=== PATIENT | female | born 1955 | race Caucasian/White ===

== ENCOUNTER → 2021-06-28 08:41 | Outpatient (CLI) | payer OTHER, SELFPAY ==
--- NOTE | 2021-06-28 08:52 | DI.MG.S_ITS ---
BILATERAL DIGITAL SCREENING MAMMOGRAM 3D/2D WITH CAD: 06/28/2021 Comparison is made to exams dated: 12/01/2018 mammogram, 11/26/2017 stereotactic biopsy, and 08/30/2017 mammogram - outside location. The tissue of both breasts is extremely dense, which lowers the sensitivity of mammography. Current study was also evaluated with a Computer Aided Detection (CAD) system. There are benign calcifications in both breasts. There also are benign vascular calcifications in the right breast. Additionally, there is a biopsy clip in the left breast. No significant masses, calcifications, or other findings are seen in either breast. There has been no significant interval change. IMPRESSION: BENIGN There is no mammographic evidence of malignancy. A 1 year screening mammogram is recommended. This exam was interpreted at Station ID: [id number]. NOTE: For mammograms, a report in lay terms will be sent to the patient. Approximately 15% of breast malignancies will not be visualized mammographically. In the management of a palpable breast mass, a negative mammogram must not discourage biopsy of a clinically suspicious lesion. Electronically Signed By: Tom mattson/rudolph:06/30/2021 08:26:27 letter sent: Normal Exam ACR BI-RADS Category 2: Benign Finding(s) 3342F
== END ==
PROVIDERS: PCP Internal Medicine; Referring Provider Internal Medicine; Visit Provider Internal Medicine
DX: Z12.31 Encounter for screening mammogram for malignant neoplasm of breast (principal)
CPT/HCPCS: 77063; 77067

== ENCOUNTER → 2021-10-09 12:30 | Outpatient (CLI) | payer OTHER, SELFPAY | PROVIDERS: PCP Internal Medicine; Referring Provider Internal Medicine; Visit Provider Internal Medicine | DX: Z78.0 Asymptomatic menopausal state (principal); Z13.820 Encounter for screening for osteoporosis; M85.89 Other specified disorders of bone density and structure, multiple sites | CPT/HCPCS: 77080 ==

== ENCOUNTER → 2021-12-09 09:16 | Outpatient (CLI) | payer OTHER, SELFPAY ==
[2021-12-09 10:48] LABS: COVID19 -Nasal RAPID Negative (Negative)
== END ==
PROVIDERS: PCP Internal Medicine; Visit Provider Surgery
DX: Z01.812 Encounter for preprocedural laboratory examination (principal); Z20.822 Contact with and (suspected) exposure to COVID-19
CPT/HCPCS: 87635; C9803

== ENCOUNTER 2021-12-10 08:22 | Day surgery (SDC) | payer OTHER, SELFPAY ==
[2021-12-10] VITALS (7 sets, daily range): BP systolic 98–145; BP diastolic 45–80; PULSE 14–67; RESP 12–19; TEMP 35.8–36.8; O2SAT 98–100; BMI 21.2
[2021-12-10] MEDS: SODIUM CHLORIDE 0.9% 1,000 ML 84 ML IV (08:51)
--- NOTE | 2021-12-10 09:29 | PM.HP.1 ---
History of Present Illness History of Present Illness Chief complaint: DX COLONOSCOPY Narrative: FIT+ Patient History Medical History (Updated 12/10/21 @ 08:41 by Ariane Blakely RN) Hypertension Surgical History (Updated 12/10/21 @ 08:40 by Ariane Blakely RN) History of carpal tunnel surgery of right wrist Family & Social History Social History: household members none Tobacco & Substance use: Smoking Status Never smoker alcohol intake current Substance Use Type does not use Meds Home Medications and Allergies Home Medications Medication Instructions Recorded Confirmed Type amlodipine 5 mg tablet 5 mg DAILY 12/10/21 12/10/21 History telmisartan 40 mg tablet 80 mg DAILY 12/10/21 12/10/21 History Allergies Allergy/AdvReac Type Severity Reaction Status Date / Time No Known Drug Allergies Allergy Verified 12/10/21 08:34 Exam Vital Signs (past 8 hours): - 12/10/21 08:41 Temperature 98.2 F Pulse Rate 67 Respiratory Rate 16 Blood Pressure 145/80 H Pulse Oximetry 100 Oxygen Delivery Method Room Air Oxygen Delivery Method Room Air Narrative Exam Narrative: Oropharynx free of lesions Chest clear to auscultation percussion Cardiac exam reveals no S3 or murmur Assessment & Plan Assessment & Plan narrative: Fit test positive, no other symptoms. First colonoscopy. Risks, benefits, alternatives have been explained. Time Spent With Patient Critical Care time: I spent a total of [] minutes of critical care time on this patient's care today; this time is exclusive of procedural time.
--- NOTE | 2021-12-10 09:30 | PM.OP.COLON ---
Operative Date/Time/Diagnoses Date of procedure: 12/10/21 Pre-op diagnosis: See indication and findings Procedure & Clinicians Study performed: Colonoscopy Indications: Fit test positive Surgeon: Kendall Cox Procedure Notes Procedure in detail: After informed consent was obtained the patient was placed in left lateral decubitus position. The video colonoscope was introduced the rectum slowly advanced cecum. Preparation was good. On slow withdrawal mucosa was carefully examined. The scope was removed. The patient tolerated procedure well. Blood loss none Complications none Sedation mac Findings 1. Medium-sized AVM at the rim of the cecum. This was ablated with APC on a setting of 0.8 L and 20 w. 2. Otherwise negative colonoscopy to cecum 3. Extensive skin tags on retroflexed view of the rectum. If Dian has I hint of anemia I would have her consider an upper endoscopy. Follow-up colonoscopy should be in 10 years
== END 2021-12-10 10:30 | disposition home or self-care (01) ==
PROVIDERS: PCP Internal Medicine; Referring Provider Internal Medicine Gastroenterology; Visit Provider Internal Medicine Gastroenterology
PROC: 0DJD8ZZ Inspection of Lower Intestinal Tract, Via Natural or Artificial Opening Endoscopic (ICD-10-PCS; CPT 45378; principal; 2021-12-10 09:30)
DX: R19.5 Other fecal abnormalities (principal); I10 Essential (primary) hypertension; K64.4 Residual hemorrhoidal skin tags; Q27.39 Arteriovenous malformation, other site
CPT/HCPCS: 45388; J2704

== ENCOUNTER → 2022-06-29 16:16 | Outpatient (CLI) | payer OTHER, SELFPAY ==
--- NOTE | 2022-06-29 16:17 | DI.MG.S_ITS ---
BILATERAL DIGITAL SCREENING MAMMOGRAM 3D/2D WITH CAD: 06/29/2022 CLINICAL: Routine screening. Family history of breast cancer. Comparison is made to exams dated: 06/28/2021 mammogram - [facility], 07/15/2017 mammogram, and 12/01/2018 mammogram - outside location. Both breasts are extremely dense, which lowers the sensitivity of mammography (category d />75% glandular tissue). Current study was also evaluated with a Computer Aided Detection (CAD) system. There are benign calcifications in both breasts. There also are benign vascular calcifications in the right breast. Additionally, there is a biopsy clip in the left breast. No significant masses, calcifications, or other findings are seen in either breast. There has been no significant interval change. IMPRESSION: BENIGN There is no mammographic evidence of malignancy. A 1 year screening mammogram is recommended. Based on Tyrer-Cuzick model (a risk assessment model), the patient's lifetime risk is 35.9% and her 10 year risk is 20.5%. If a patient has an elevated risk, a more comprehensive evaluation should be considered and/or a referral to a genetic counselor. The [place] [employer], [employer], and NCCN Guidelines advise the consideration of Breast MRI as an adjunct to screening mammography in patients whose Lifetime risk to develop breast cancer is 20% or higher. This exam was interpreted at Station ID: [id number]. NOTE: For mammograms, a report in lay terms will be sent to the patient. Approximately 15% of breast malignancies will not be visualized mammographically. In the management of a palpable breast mass, a negative mammogram must not discourage biopsy of a clinically suspicious lesion. Electronically Signed By: Kayoed Geiger M.D., jr/rudolph:06/30/2022 14:34:44 letter sent: Normal Exam ACR BI-RADS Category 2: Benign Finding(s) 3342F
== END ==
PROVIDERS: PCP Family Medicine; Referring Provider Family Medicine; Visit Provider Family Medicine
DX: Z12.31 Encounter for screening mammogram for malignant neoplasm of breast (principal); Z80.3 Family history of malignant neoplasm of breast
CPT/HCPCS: 77063; 77067

== ENCOUNTER → 2023-04-16 07:16 | Outpatient (CLI) | payer OTHER, SELFPAY ==
[2023-04-16 08:22] LABS: Add Manual Diff / Slide Review NO; Basophils Absolute Auto 100 /uL (0-100); Basophils Percent Auto 2.2 % (0-2); Eosinophils Absolute Auto 100 /uL (0-450); Eosinophils Percent Auto 1.6 % (2-4); Hematocrit 38.9 % (36-46); Hemoglobin 13.2 g/dL (12.0-16.0); Lymphocytes Absolute Auto 2000 /uL (1100-4500); Lymphocytes Percent Auto 43.1 % (25-40); Mean Corpuscular HGB Conc 33.9 % (30-36); Mean Corpuscular Hemoglobin 31.2 PG (26-34); Mean Corpuscular Volume 92.1 fL (80-100); Monocytes Absolute Auto 300 /uL (0-900); Neutrophils Absolute Auto 2100 /uL (1500-7000); Neutrophils Percent Auto 46.1 % (50-75); Platelet Count 338 X10^3/uL (150-400); Red Blood Cell Count 4.22 X10^6/uL (4.0-5.2); Red Cell Distribution Width 12.9 % (11.6-14.8); White Blood Cell Count 4.6 X10^3/uL (4.5-11.0)
[2023-04-16 08:37] LABS: BUN Creatinine Ratio 24.3 (6-22); Blood Urea Nitrogen 17 mg/dL (7-17); Calcium 10.5 mg/dL (8.4-10.2); Carbon Dioxide 27 mmol/L (22-32); Chloride 100 mmol/L (98-107); Estimated Glomerular Filt Rate > 60 mL/min (>60); Glucose 90 mg/dL (80-110); HEMOLYSIS < 15 (0-50); Potassium 4.6 mmol/L (3.4-5.1); Sodium 135 mmol/L (137-145)
[2023-04-16 08:41] LABS: High Sensitivity CRP - Cardiac < 0.3 mg/L (1.0-3.0)
[2023-04-16 08:48] LABS: Vitamin D 25 Hydroxy (D3) 47.2 ng/mL (30.0-100.0)
[2023-04-16 08:55] LABS: Creatinine Urine Random 34.9 mg/dL
[2023-04-16 09:01] LABS: Microalbumin Urine Random < 0.6 mg/dL (0-1.6)
== END ==
PROVIDERS: PCP Family Medicine; Referring Provider Family Medicine; Visit Provider Family Medicine
DX: I10 Essential (primary) hypertension (principal); E55.9 Vitamin D deficiency, unspecified; E78.5 Hyperlipidemia, unspecified; R73.9 Hyperglycemia, unspecified
CPT/HCPCS: 36415; 80048; 82043; 82306; 82570; 85025; 86140

== ENCOUNTER → 2023-07-01 | Outpatient (CLI) | payer OTHER, SELFPAY ==
--- NOTE | 2023-07-01 | DI.MG.S_ITS ---
BILATERAL DIGITAL SCREENING MAMMOGRAM 3D/2D WITH CAD: 07/01/2023 CLINICAL: Routine screening. Family history of breast cancer. Comparison is made to exams dated: 06/29/2022 mammogram, 06/28/2021 mammogram - [facility], and 12/01/2018 mammogram - outside location. Both breasts are extremely dense, which lowers the sensitivity of mammography (category d />75% glandular tissue). Current study was also evaluated with a Computer Aided Detection (CAD) system. There is a biopsy clip in the left breast. No significant masses, calcifications, or other findings are seen in either breast. There has been no significant interval change. IMPRESSION: BENIGN There is no mammographic evidence of malignancy. A 1 year screening mammogram is recommended. Based on Tyrer-Cuzick model (a risk assessment model), the patient's lifetime risk is 34.3% and her 10 year risk is 20.5%. If a patient has an elevated risk, a more comprehensive evaluation should be considered and/or a referral to a genetic counselor. The [place] [employer], [employer] [employer], and NCCN Guidelines advise the consideration of Breast MRI as an adjunct to screening mammography in patients whose Lifetime risk to develop breast cancer is 20% or higher. This exam was interpreted at Station ID: [id number]. NOTE: For mammograms, a report in lay terms will be sent to the patient. Approximately 15% of breast malignancies will not be visualized mammographically. In the management of a palpable breast mass, a negative mammogram must not discourage biopsy of a clinically suspicious lesion. Electronically Signed By: Cheryl Espinal M.D., PH.D eb/:07/02/2023 22:59:04 letter sent: Normal Exam ACR BI-RADS Category 2: Benign Finding(s) 3342F
== END ==
PROVIDERS: PCP Family Medicine; Referring Provider Family Medicine; Visit Provider Family Medicine
DX: Z12.31 Encounter for screening mammogram for malignant neoplasm of breast (principal); Z80.3 Family history of malignant neoplasm of breast; R92.343 Mammographic extreme density, bilateral breasts
CPT/HCPCS: 77063; 77067

== ENCOUNTER → 2024-03-02 07:24 | Outpatient (CLI) | payer OTHER, SELFPAY ==
[2024-03-02 08:41] LABS: Alanine Aminotransferase 77 IU/L (<35); Albumin 4.4 g/dL (3.5-5.0); Albumin Globulin Ratio 1.8 (1.0-2.8); Alkaline Phosphatase 75 U/L (38-126); Aspartate Aminotransferase 54 IU/L (14-36); BUN Creatinine Ratio 25.3 (6-22); Bilirubin Total 0.7 mg/dL (0.2-1.3); Blood Urea Nitrogen 20 mg/dL (7-17); Calcium 9.9 mg/dL (8.4-10.2); Carbon Dioxide 29 mmol/L (22-32); Chloride 102 mmol/L (98-107); Cholesterol 261 mg/dL (140-199); Estimated Glomerular Filt Rate > 60 mL/min (>60); Globulin 2.4 g/dL (1.7-4.1); Glucose 90 mg/dL (80-110); HEMOLYSIS < 15 (0-50); Potassium 4.7 mmol/L (3.4-5.1); Sodium 135 mmol/L (137-145); Total Protein 6.8 g/dL (6.3-8.2); Triglycerides 54 mg/dL (35-150)
[2024-03-02 08:46] LABS: High Sensitivity CRP - Cardiac < 0.3 mg/L (1.0-3.0)
[2024-03-02 08:53] LABS: HDL Cholesterol 138 mg/dL (40-60); LDL Cholesterol Calculated 112 mg/dL (<100)
== END ==
PROVIDERS: PCP Family Medicine; Referring Provider Family Medicine; Visit Provider Family Medicine
DX: I10 Essential (primary) hypertension (principal); E83.52 Hypercalcemia; M85.80 Other specified disorders of bone density and structure, unspecified site; Z78.0 Asymptomatic menopausal state; R25.2 Cramp and spasm
CPT/HCPCS: 36415; 80053; 80061; 82306; 86140

== ENCOUNTER → 2024-03-10 14:10 | Outpatient (CLI) | payer OTHER, SELFPAY ==
--- NOTE | 2024-03-10 14:10 | DI.RAD.S_ITS ---
PROCEDURE: XR DEXA AXIAL SKELETON INDICATIONS: bone density screen COMPARISON: , MARCIA, XR DEXA AXIAL SKELETON, 10/09/2021, 12:50. FINDINGS: Lumbar Spine: Bone mineral density 0.782 g/cm2, T score - 2.4, no statistically significant change compared to prior.. Left Hip: Bone mineral density 0.786 g/cm2, T score -1.3, no statistically significant change compared to prior. Left Femoral Neck: Bone mineral density 0.656 g/cm2, T score -1.7. Right Hip: Bone mineral density 0.774 g/cm2, T score -1.4, statistically significant decreased compared to prior by 6.7 percent. Right Femoral Neck: Bone mineral density 0.689 g/cm2, T score -1.4. Fracture Risk Calculation (when applicable): 10-year fracture risk of a major osteoporotic fracture 9.8 percent and of a hip fracture 1.6 percent. (T score greater or equal to -1.0 to: NORMAL) (T score from -1.1 to -2.4: OSTEOPENIA) (T score less than or equal to -2.5: OSTEOPOROSIS) IMPRESSION: Low bone mineral density (osteopenia) by WHO classification. Follow-up guidelines as follows: Osteoporosis: Consider a repeat DEXA and Vertebral Fracture Assessment (VFA) exam in 2 years or sooner if medically necessary, to reassess this patient's status. Osteopenia: Consider a repeat DEXA in 2-3 years to reassess this patient's status, or if there is a new clinical indication. Normal: Consider a repeat DEXA in 5 years or sooner, or if there is a new clinical indication. All treatment decisions require clinical judgment and consideration of individual patient factors, including patient preferences, comorbidities, previous drug use, risk factors not captured in the FRAX model (e.g., frailty, falls, vitamin D deficiency, increased bone turnover, interval significant decline in bone density ) and possible under- or over-estimation of fracture risk by FRAX. In addition, the NOF Guide recommends that FDA-approved medical therapies be considered in postmenopausal women and men age >= 50 years with a: * Hip or vertebral (clinical or morphometric) fracture * T-score of <=-2.5 at the spine or hip * Ten-year fracture probability by FRAX of >= 3% for hip fracture or >=20% for major osteoporotic fracture. People with diagnosed cases of osteoporosis or at high risk for fracture should have regular bone mineral density tests. For patients eligible for Medicare, routine testing is allowed once every 2 years. The testing frequency can be increased to one year for patients who have rapidly progressing disease, those who are receiving or discontinuing medical therapy to restore bone mass, or have additional risk factors. Dictated by: Sen Sandoval M.D. on 03/10/2024 at 16:26 Approved by: Sen Sandoval M.D. on 03/10/2024 at 16:28
== END ==
PROVIDERS: PCP Family Medicine; Referring Provider Family Medicine; Visit Provider Family Medicine
DX: M85.80 Other specified disorders of bone density and structure, unspecified site (principal); Z78.0 Asymptomatic menopausal state
CPT/HCPCS: 77080

== ENCOUNTER → 2024-07-04 15:54 | Outpatient (CLI) | payer OTHER, SELFPAY ==
--- NOTE | 2024-07-04 15:55 | DI.MRI.S_ITS ---
MR breast BI wo/w con: 07/04/2024. BI-RADS: 2 CLINICAL: 69-year old female for bilateral diagnostic breast MRI. High-Risk Screening MRI. Current reported family history of breast cancer: mother. The patient had a prior left breast biopsy. PRIOR EXAMS: Breast imaging 07/04/2024, 07/01/2023, , 11/26/2017, 10/25/2017, 08/30/2017, 07/15/2017. MRI TECHNIQUE: Bilateral breast MRI was performed on a 1.5 Nydia magnet using a dedicated breast coil with mild compression. Axial T1 and T2 STIR sequences were obtained. Dynamic contrast enhanced VIBRANT fat-suppressed sequences were obtained. Delayed sagittal high resolution or sagittal reconstructed isotropic sequence was also obtained. Subtraction images and maximum intensity projection images were obtained. The study was evaluated using [employer] software. IV Contrast: 20 ml ProHance. FIBROGLANDULAR TISSUE Bilateral: D. Extreme fibroglandular tissue. BACKGROUND PARENCHYMAL ENHANCEMENT Bilateral: Minimal symmetrical background parenchymal enhancement. BREAST FINDINGS There are no abnormal axillary or internal mammary lymph nodes. Right: Benign-appearing intramammary lymph node(s) and duct ectasia noted. Left: Benign-appearing duct ectasia noted. CHEST FINDINGS There is 0.9 cm pulmonary nodule in the right lower lung (series 2 image 32). Possible additional scattered sub-0.4 cm nodules are also seen in the right lower lung. IMPRESSION: * No evidence of malignancy with benign findings. RECOMMENDATIONS * Recommend CT chest for further evaluation of incidental pulmonary nodules seen in the right lower lung. Bilateral * Annual screening mammography in one year (Consider breast MRI for high-risk screening based on clinical risk assessment). OVERALL ASSESSMENT CATEGORY BI-RADS-2: Benign. ELECTRONICALLY SIGNED: Qian Hill M.D. on 07/05/2024 at 07:04:24 PM PT Interpreting Station ID: [id number]
--- NOTE | 2024-07-04 15:55 | DI.MG.S_ITS ---
MM screening mammo BI: 07/04/2024. BI-RADS: 2 CLINICAL: 69-year old female for bilateral screening mammogram. Tyrer-Cuzick lifetime risk of 17.4%. Current reported family history of breast cancer: mother. The patient had a prior left breast biopsy. PRIOR EXAMS 07/01/2023, 06/29/2022, 06/28/2021. MAMMOGRAPHY TECHNIQUE: 2D and 3D (tomosynthesis) digital mammographic views obtained, with additional images as needed for full coverage. Current study was also evaluated with a Computer Aided Detection (CAD) system. DENSITY D. The breasts are extremely dense, which lowers the sensitivity of mammography. MAMMOGRAPHY FINDINGS Bilateral: Benign-appearing calcifications noted. There are no suspicious masses, calcifications, or other findings in the breast. No significant change from comparison. IMPRESSION: * No evidence of malignancy with benign findings. RECOMMENDATIONS Bilateral * Annual screening mammography. OVERALL ASSESSMENT CATEGORY BI-RADS-2: Benign. The [employer] recommends annual screening mammography beginning at age 40 for women with average risk of breast cancer. ELECTRONICALLY SIGNED: Qian Hill M.D. on 07/05/2024 at 08:59:15 AM PT Interpreting Station ID: [id number]
== END ==
PROVIDERS: PCP Family Medicine; Referring Provider Family Medicine; Visit Provider Family Medicine
DX: Z12.31 Encounter for screening mammogram for malignant neoplasm of breast (principal); Z12.39 Encounter for other screening for malignant neoplasm of breast; R91.1 Solitary pulmonary nodule; R92.323 Mammographic fibroglandular density, bilateral breasts; Z91.89 Other specified personal risk factors, not elsewhere classified; Z80.3 Family history of malignant neoplasm of breast
CPT/HCPCS: 77049; 77063; 77067; A9579

== ENCOUNTER → 2025-03-07 07:09 | Outpatient (CLI) | payer OTHER, SELFPAY ==
[2025-03-07 09:04] LABS: Alanine Aminotransferase 42 IU/L (<35); Albumin 4.2 g/dL (3.5-5.0); Albumin Globulin Ratio 1.7 (1.0-2.8); Alkaline Phosphatase 69 U/L (38-126); Blood Urea Nitrogen 24 mg/dL (7-17); Calcium 9.5 mg/dL (8.4-10.2); Carbon Dioxide 25 mmol/L (22-32); Chloride 102 mmol/L (98-107); Cholesterol 233 mg/dL (140-199); Estimated Glomerular Filt Rate > 60 mL/min (>60); Globulin 2.5 g/dL (1.7-4.1); Glucose 95 mg/dL (70-99); HEMOLYSIS < 15 (0-50); Potassium 4.7 mmol/L (3.4-5.1); Sodium 136 mmol/L (137-145); Total Protein 6.7 g/dL (6.3-8.2); Triglycerides 45 mg/dL (35-150)
[2025-03-07 09:12] LABS: HDL Cholesterol 118 mg/dL (40-60)
[2025-03-08 04:36] LABS: CRP, High Sensitivity 0.42 mg/L (0.00-3.00)
== END ==
PROVIDERS: PCP Family Medicine; Referring Provider Family Medicine; Visit Provider Family Medicine
DX: I10 Essential (primary) hypertension (principal); E78.5 Hyperlipidemia, unspecified
CPT/HCPCS: 36415; 80053; 80061; 86140